=== PATIENT | female | born 1940 | race Caucasian/White ===

== ENCOUNTER 2024-04-29 06:27 | Inpatient (IN) ==
[2024-04-21 11:28] LABS: Basophils # (Auto) 0.03 K/mcL (0.00-0.30); Basophils % (Auto) 0.4 % (0.0-2.0); Eosinophils # (Auto) 0.12 K/mcL (0.00-0.70); Eosinophils % (Auto) 1.8 % (0.0-7.0); Hematocrit 43.9 % (34.1-44.9); Hemoglobin 14.7 g/dL (11.2-15.7); Lymphocytes # (Auto) 2.57 K/mcL (1.50-4.80); Lymphocytes % (Auto) 38.2 % (15.5-49.0); Mean Cell Volume 90.1 fL (80.0-100.0); Mean Corpuscular HGB Conc 33.5 g/dL (31.0-36.0); Mean Platelet Volume 9.5 fL (8.8-12.5); Monocytes # (Auto) 0.58 K/mcL (0.10-0.90); Monocytes % (Auto) 8.6 % (1.0-12.0); Neutrophils % (Auto) 50.9 % (38.0-78.0); Platelet Count 254 K/mcL (140-440); RBC 4.87 M/mcL (3.59-5.38); Red Cell Distribution Width 12.7 % (11.5-14.5); WBC 6.7 K/mcL (4.5-11.0)
[2024-04-21 11:30] LABS: Blood Urea Nitrogen 12 mg/dL (8-23); Calcium 10.2 mg/dL (8.6-10.4); Carbon Dioxide 27 mmol/L (22-30); Chloride 99 mmol/L (96-108); Glomerular Filtration Rate 69; Glucose 103 mg/dL (70-105); Potassium 4.2 mmol/L (3.3-5.1); Sodium 137 mmol/L (133-145)
[2024-04-21 13:43] LABS: Hemoglobin A1C 6.3 % Hgb (4.0-6.0)
[2024-04-29] MEDS: CELECOXIB 200 MG CAPSULE PO SCH (06:58)
[2024-04-29] MEDS: ACETAMINOPHEN 500 MG TABLET PO SCH (06:58)
[2024-04-29] MEDS: GABAPENTIN 100 MG CAPSULE PO SCH (06:58)
[2024-04-29] MEDS ORDERED: fentaNYL 100 MCG/2 ML VIAL ONE ×2 (07:07→09:27)
[2024-04-29] MEDS ORDERED: PROPOFOL 200 MG/20 ML VIAL IV ONE (07:07)
[2024-04-29] MEDS ORDERED: KETAMINE 50 MG/ML ML ONE (07:08)
[2024-04-29] MEDS ORDERED: DEXAMETHASONE 10 MG/ML VIAL ONE (07:09)
[2024-04-29] MEDS ORDERED: GLYCOPYRROLATE 0.2 MG/ML VIAL IV ONE (07:09)
[2024-04-29] MEDS ORDERED: ROCURONIUM 10 MG/ML ML IV ONE ×2 (07:09→09:27)
[2024-04-29] MEDS ORDERED: LIDOCAINE 2% PF 5 ML VIAL ONE (07:09)
[2024-04-29] MEDS ORDERED: ONDANSETRON 4 MG/2 ML VIAL ONE (07:09)
[2024-04-29] MEDS ORDERED: SUCCINYLCHOLINE 200 MG/10 ML VIAL IV ONE (07:10)
[2024-04-29] MEDS ORDERED: FAMOTIDINE/PF 20 MG/2 ML VIAL IV ONE (07:11)
[2024-04-29] MEDS: ceFAZolin 2 GM in DEXTROSE 5% IN WATER 50 ML IV SCH (07:29)
[2024-04-29] MEDS ORDERED: PHENYLephrine 1 MG/10 ML SYRINGE (ANEST) ONE (07:54)
[2024-04-29] MEDS ORDERED: VASOPRESSIN 20 UNIT/ML VIAL ONE (07:57)
[2024-04-29] MEDS ORDERED: 0.9 % SODIUM CHLORIDE 100 ML IV ONE (07:57)
[2024-04-29] MEDS ORDERED: MAGNESIUM SULFATE 2 GM/50 ML BAG IV ONE (07:57)
[2024-04-29] MEDS: BUPIVACAINE W/EPI 0.25% 50 ML VIAL IJ ONE (09:45)
[2024-04-29] MEDS: PIPERACILLIN SODIUM/TAZOBACTAM 3.375 GM in DEXTROSE 5% IN WATER 50 ML IV ONE (10:00)
[2024-04-29] MEDS ORDERED: SUGAMMADEX SODIUM 200 MG/2 ML VIAL IV ONE (11:45)
[2024-04-29] MEDS ORDERED: HYDROmorphone 0.5 MG/0.5 ML SYRINGE IV PRN ×2 (11:52→15:49)
[2024-04-29] MEDS ORDERED: LACTATED RINGERS 250 ML IV PRN (11:52)
[2024-04-29] MEDS ORDERED: BENZOCAINE/MENTHOL 1 LOZENGE PO PRN (11:52)
[2024-04-29] MEDS ORDERED: ONDANSETRON 4 MG/2 ML VIAL IV PRN (11:52)
[2024-04-29] MEDS ORDERED: fentaNYL 100 MCG/2 ML VIAL IV PRN (11:52)
[2024-04-29] MEDS ORDERED: IPRATROPIUM/ALBUTEROL 3 ML AMPUL.NEB NEB PRN (11:52)
[2024-04-29] MEDS ORDERED: NALOXONE HCL 0.4 MG/ML VIAL IV PRN (11:52)
[2024-04-29] MEDS: ACETAMINOPHEN 1,000 MG/100 ML BAG IV ONE (12:20)
[2024-04-29] MEDS: METHOCARBAMOL 1,000 MG/10 ML VIAL IV PRN (12:41)
[2024-04-29] MEDS: PIPERACILLIN SODIUM/TAZOBACTAM 3.375 GM in DEXTROSE 5% IN WATER 100 ML IV SCH (15:30)
[2024-04-29] MEDS: LACTATED RINGERS 1,000 ML IV SCH (15:56)
[2024-04-29] MEDS: PANTOPRAZOLE 40 MG VIAL IV SCH (17:37)
[2024-04-29] MEDS: 0.9 % SODIUM CHLORIDE 1,000 ML IV SCH (17:39)
[2024-04-29] MEDS: ACETAMINOPHEN 1,000 MG/100 ML BAG IV SCH (17:45)
[2024-04-29] MEDS ORDERED: METOCLOPRAMIDE 10 MG/2 ML VIAL IV SCH (18:00)
[2024-04-29] MEDS: METOCLOPRAMIDE 10 MG/2 ML VIAL IV SCH (18:17)
[2024-04-30 06:20] LABS: Basophils # (Auto) 0.01 K/mcL (0.00-0.30); Basophils % (Auto) 0.1 % (0.0-2.0); Eosinophils # (Auto) 0 K/mcL (0.00-0.70); Eosinophils % (Auto) 0 % (0.0-7.0); Hematocrit 37.6 % (34.1-44.9); Hemoglobin 12.6 g/dL (11.2-15.7); Lymphocytes # (Auto) 1.56 K/mcL (1.50-4.80); Lymphocytes % (Auto) 11.7 % (15.5-49.0); Mean Corpuscular HGB Conc 33.5 g/dL (31.0-36.0); Mean Platelet Volume 9.7 fL (8.8-12.5); Monocytes # (Auto) 1.33 K/mcL (0.10-0.90); Platelet Count 203 K/mcL (140-440); RBC 4.18 M/mcL (3.59-5.38); Red Cell Distribution Width 12.7 % (11.5-14.5); WBC 13.3 K/mcL (4.5-11.0)
[2024-04-30 06:28] LABS: ALT/SGPT 15 U/L (<40); AST/SGOT 19 U/L (<32); Albumin 3.3 gm/dL (3.2-5.2); Albumin/Globulin Ratio 1.6 (1.0-2.3); Alkaline Phosphatase 48 U/L (39-117); Bilirubin,Direct < 0.2 mg/dL (0-0.3); Bilirubin,Total 0.4 mg/dL (0.1-1.0); Blood Urea Nitrogen 12 mg/dL (8-23); Calcium 8.3 mg/dL (8.6-10.4); Carbon Dioxide 21 mmol/L (22-30); Chloride 103 mmol/L (96-108); Globulin 2.1 gm/dL (2.2-3.7); Glomerular Filtration Rate 69; Glucose 127 mg/dL (70-105); Lactate Dehydrogenase 183 U/L (135-225); Phosphorous 3.1 mg/dL (2.5-4.5); Potassium 4.2 mmol/L (3.3-5.1); Sodium 134 mmol/L (133-145); Triglycerides 116 mg/dL (<150); Uric Acid 3.1 mg/dL (2.5-8.0)
[2024-04-30] MEDS: LEVOTHYROXINE 50 MCG TABLET PO SCH (07:52)
[2024-04-30] MEDS: POLYETHYLENE GLYCOL 3350 17 GM PACKET PO SCH (09:43)
[2024-05-01 06:13] LABS: Basophils # (Auto) 0.03 K/mcL (0.00-0.30); Basophils % (Auto) 0.3 % (0.0-2.0); Eosinophils # (Auto) 0.04 K/mcL (0.00-0.70); Eosinophils % (Auto) 0.4 % (0.0-7.0); Hematocrit 38.1 % (34.1-44.9); Hemoglobin 12.7 g/dL (11.2-15.7); Lymphocytes # (Auto) 1.81 K/mcL (1.50-4.80); Lymphocytes % (Auto) 18.4 % (15.5-49.0); Mean Cell Volume 90.7 fL (80.0-100.0); Mean Corpuscular HGB Conc 33.3 g/dL (31.0-36.0); Mean Platelet Volume 9.8 fL (8.8-12.5); Monocytes # (Auto) 0.82 K/mcL (0.10-0.90); Monocytes % (Auto) 8.3 % (1.0-12.0); Neutrophils % (Auto) 72.5 % (38.0-78.0); Platelet Count 205 K/mcL (140-440); Red Cell Distribution Width 12.9 % (11.5-14.5); WBC 9.9 K/mcL (4.5-11.0)
[2024-05-01 06:39] LABS: ALT/SGPT 13 U/L (<40); AST/SGOT 22 U/L (<32); Albumin 3.3 gm/dL (3.2-5.2); Albumin/Globulin Ratio 1.3 (1.0-2.3); Alkaline Phosphatase 55 U/L (39-117); Bilirubin,Direct 0.2 mg/dL (<0.3); Bilirubin,Total 0.5 mg/dL (0.1-1.0); Blood Urea Nitrogen 11 mg/dL (8-23); Calcium 8.6 mg/dL (8.6-10.4); Carbon Dioxide 22 mmol/L (22-30); Chloride 108 mmol/L (96-108); Globulin 2.5 gm/dL (2.2-3.7); Glomerular Filtration Rate 69; Glucose 120 mg/dL (70-105); Lactate Dehydrogenase 191 U/L (135-225); Phosphorous 1.9 mg/dL (2.5-4.5); Potassium 3.6 mmol/L (3.3-5.1); Sodium 140 mmol/L (133-145); Triglycerides 145 mg/dL (<150); Uric Acid 2.4 mg/dL (2.5-8.0)
[2024-05-01] MEDS: 0.9 % SODIUM CHLORIDE 10 ML SYRINGE IV SCH (13:58)
[2024-05-01] MEDS: LOSARTAN 25 MG TABLET PO SCH (20:02)
[2024-05-02 06:12] LABS: Basophils # (Auto) 0.03 K/mcL (0.00-0.30); Basophils % (Auto) 0.3 % (0.0-2.0); Eosinophils # (Auto) 0.12 K/mcL (0.00-0.70); Eosinophils % (Auto) 1.3 % (0.0-7.0); Hematocrit 37.6 % (34.1-44.9); Hemoglobin 12.2 g/dL (11.2-15.7); Lymphocytes # (Auto) 2.07 K/mcL (1.50-4.80); Lymphocytes % (Auto) 22.8 % (15.5-49.0); Mean Cell Volume 91.5 fL (80.0-100.0); Mean Corpuscular HGB Conc 32.4 g/dL (31.0-36.0); Mean Platelet Volume 9.8 fL (8.8-12.5); Monocytes # (Auto) 0.79 K/mcL (0.10-0.90); Monocytes % (Auto) 8.7 % (1.0-12.0); Neutrophils % (Auto) 66.7 % (38.0-78.0); Platelet Count 222 K/mcL (140-440); RBC 4.11 M/mcL (3.59-5.38); WBC 9.1 K/mcL (4.5-11.0)
[2024-05-02 06:27] LABS: ALT/SGPT 14 U/L (<40); AST/SGOT 22 U/L (<32); Albumin 3.2 gm/dL (3.2-5.2); Albumin/Globulin Ratio 1.2 (1.0-2.3); Alkaline Phosphatase 56 U/L (39-117); Bilirubin,Direct 0.2 mg/dL (<0.3); Bilirubin,Total 0.5 mg/dL (0.1-1.0); Blood Urea Nitrogen 10 mg/dL (8-23); Calcium 8.8 mg/dL (8.6-10.4); Carbon Dioxide 23 mmol/L (22-30); Chloride 104 mmol/L (96-108); Globulin 2.7 gm/dL (2.2-3.7); Glomerular Filtration Rate 81; Glucose 116 mg/dL (70-105); Lactate Dehydrogenase 196 U/L (135-225); Phosphorous 1.9 mg/dL (2.5-4.5); Potassium 3.4 mmol/L (3.3-5.1); Sodium 137 mmol/L (133-145); Triglycerides 149 mg/dL (<150); Uric Acid 2.3 mg/dL (2.5-8.0)
[2024-05-02] MEDS ORDERED: MAGNESIUM HYDROXIDE 30 ML ORAL.SUSP PO PRN (15:20)
[2024-05-02] MEDS: POLYETHYLENE GLYCOL 3350 17 GM PACKET PO SCH (15:58)
[2024-05-02] MEDS: POTASSIUM PHOSPHATE 40 MEQ in 0.9 % SODIUM CHLORIDE 500 ML IV SCH (16:09)
[2024-05-03] MEDS ORDERED: POLYETHYLENE GLYCOL 3350 17 GM PACKET PO SCH (09:00)
[2024-05-03] MEDS: BENZOCAINE/MENTHOL 1 LOZENGE PO PRN (14:13)
[2024-05-03] MEDS: PANTOPRAZOLE 40 MG TABLET PO SCH (16:45)
[2024-05-03] MEDS: METOCLOPRAMIDE 10 MG TABLET PO SCH (16:45)
[2024-05-04 10:18] VITALS: TEMP 97.5; O2SAT 96
[2024-05-04] MEDS: PIPERACILLIN SODIUM/TAZOBACTAM 3.375 GM in 0.9 % SODIUM CHLORIDE 100 ML IV SCH (14:05)
== END 2024-05-04 16:26 | disposition home or self-care (01) | DRG 742 ==
LOC: SUR 06:27 → ICU 14:19 → MEDSUR 05-03 15:40
PROVIDERS: ADMIT Family Medicine Adult Medicine; ATTEND Family Medicine Adult Medicine

== ENCOUNTER 2024-08-12 05:50 | Inpatient (IN) ==
[2024-08-05 11:24] LABS: INR 0.9 (0.9-1.1); Prothrombin Time 12.5 sec (11.9-14.5)
[2024-08-12] MEDS: metroNIDAZOLE 500 MG/100 ML BAG IV SCH (08:15)
[2024-08-12] MEDS ORDERED: SUGAMMADEX SODIUM 200 MG/2 ML VIAL IV ONE (08:16)
[2024-08-12] MEDS ORDERED: KETAMINE 50 MG/ML Syringe IV ONE (08:16)
[2024-08-12] MEDS ORDERED: fentaNYL 100 MCG/2 ML VIAL ONE (08:16)
[2024-08-12] MEDS ORDERED: ONDANSETRON 4 MG/2 ML VIAL ONE (08:18)
[2024-08-12] MEDS ORDERED: DEXAMETHASONE 10 MG/ML VIAL ONE (08:18)
[2024-08-12] MEDS ORDERED: PROPOFOL 200 MG/20 ML VIAL IV ONE ×2 (08:18→11:25)
[2024-08-12] MEDS ORDERED: ROCURONIUM 10 MG/ML ML IV ONE ×2 (08:18→10:44)
[2024-08-12] MEDS ORDERED: GLYCOPYRROLATE 0.2 MG/ML VIAL IV ONE (08:18)
[2024-08-12] MEDS ORDERED: LIDOCAINE 2% PF 5 ML VIAL ONE (08:18)
[2024-08-12] MEDS: CEFEPIME 2 GM VIAL IV SCH (08:59)
[2024-08-12] MEDS ORDERED: PHENYLephrine 1 MG/10 ML SYRINGE (ANEST) ONE (09:39)
[2024-08-12] MEDS ORDERED: CARBOXYMETHYLCELLULOSE SODIUM 1 EACH DROPER.GEL ONE (09:41)
[2024-08-12] MEDS ORDERED: PHENYLEPHRINE 10 MG/ML VIAL ONE (10:19)
[2024-08-12] MEDS ORDERED: MAGNESIUM SULFATE 2 GM/50 ML BAG IV ONE (10:19)
[2024-08-12] MEDS ORDERED: ePHEDrine 50 MG/5 ML SYRINGE (ANEST) IV ONE (10:30)
[2024-08-12] MEDS ORDERED: ONDANSETRON 4 MG/2 ML VIAL IV PRN ×2 (11:33→12:20)
[2024-08-12] MEDS ORDERED: METHOCARBAMOL 1,000 MG/10 ML VIAL IV PRN ×2 (11:33→12:20)
[2024-08-12] MEDS ORDERED: HYDROmorphone 0.5 MG/0.5 ML SYRINGE IV PRN ×2 (11:33→12:20)
[2024-08-12] MEDS ORDERED: IPRATROPIUM/ALBUTEROL 3 ML AMPUL.NEB NEB PRN ×2 (11:33→12:20)
[2024-08-12] MEDS ORDERED: BENZOCAINE/MENTHOL 1 LOZENGE PO PRN ×2 (11:33→12:20)
[2024-08-12] MEDS ORDERED: fentaNYL 100 MCG/2 ML VIAL IV PRN ×2 (11:33→12:20)
[2024-08-12] MEDS ORDERED: HYDROmorphone 0.5 MG/0.5 ML SYRINGE ONE (12:19)
[2024-08-12] MEDS: ACETAMINOPHEN 1,000 MG/100 ML BAG IV ONE (13:20)
[2024-08-12] MEDS: 0.9 % SODIUM CHLORIDE 10 ML SYRINGE IV SCH (14:45)
[2024-08-12] MEDS: 0.9 % SODIUM CHLORIDE 1,000 ML IV SCH (14:45)
[2024-08-12] MEDS: HYDROmorphone 0.5 MG/0.5 ML SYRINGE IV PRN (16:40)
[2024-08-12] MEDS: ONDANSETRON 4 MG/2 ML VIAL IV PRN (16:41)
[2024-08-12] MEDS: LACTATED RINGERS 1,000 ML IV SCH (20:56)
[2024-08-12] MEDS: BENZOCAINE/MENTHOL 1 LOZENGE PO PRN (21:07)
[2024-08-12] MEDS: LOSARTAN 25 MG TABLET PO SCH (21:08)
[2024-08-13 06:52] LABS: Basophils # (Auto) 0 K/mcL (0.00-0.30); Basophils % (Auto) 0 % (0.0-2.0); Eosinophils # (Auto) 0 K/mcL (0.00-0.70); Eosinophils % (Auto) 0 % (0.0-7.0); Hematocrit 42.1 % (34.1-44.9); Hemoglobin 13.8 g/dL (11.2-15.7); Lymphocytes # (Auto) 1.26 K/mcL (1.50-4.80); Lymphocytes % (Auto) 9.9 % (15.5-49.0); Mean Cell Volume 90.7 fL (80.0-100.0); Mean Corpuscular HGB Conc 32.8 g/dL (31.0-36.0); Mean Platelet Volume 9.7 fL (8.8-12.5); Monocytes # (Auto) 1.11 K/mcL (0.10-0.90); Monocytes % (Auto) 8.7 % (1.0-12.0); Neutrophils % (Auto) 81.2 % (38.0-78.0); Platelet Count 268 K/mcL (140-440); RBC 4.64 M/mcL (3.59-5.38); Red Cell Distribution Width 12.7 % (11.5-14.5); WBC 12.7 K/mcL (4.5-11.0)
[2024-08-13 07:23] LABS: ALT/SGPT 16 U/L (<40); AST/SGOT 19 U/L (<32); Albumin 3.5 gm/dL (3.2-5.2); Albumin/Globulin Ratio 1.5 (1.0-2.3); Alkaline Phosphatase 58 U/L (39-117); Bilirubin,Direct < 0.2 mg/dL (0-0.3); Bilirubin,Total 0.5 mg/dL (0.1-1.0); Blood Urea Nitrogen 16 mg/dL (8-23); Calcium 8.8 mg/dL (8.6-10.4); Carbon Dioxide 23 mmol/L (22-30); Chloride 105 mmol/L (96-108); Globulin 2.4 gm/dL (2.2-3.7); Glomerular Filtration Rate 60; Glucose 152 mg/dL (70-105); Lactate Dehydrogenase 225 U/L (135-225); Phosphorous 2.9 mg/dL (2.5-4.5); Potassium 4.2 mmol/L (3.3-5.1); Sodium 137 mmol/L (133-145); Triglycerides 58 mg/dL (<150); Uric Acid 5.6 mg/dL (2.5-8.0)
[2024-08-13] MEDS: LEVOTHYROXINE 50 MCG TABLET PO SCH (08:09)
[2024-08-13 09:47] LABS: Appearance,Urine Clear (Clear); Bilirubin,Urine Negative (Negative); Color,Urine Yellow; Glucose,Urine (UA) Negative (Negative); Ketones,Urine Negative (Negative); Leukocyte Esterase,Urine Negative /uL (Negative); Nitrate,Urine Negative (Negative); PH,Urine 5.5 (5.0-9.0); Protein,Urine 30 mg/dL (Negative); Uric Acid Crystals,Urine Rare /hpf; Urine Blood Large ery/mcL (Negative); Urine Granular Cast 4 /lph (0-0); Urine RBC 13 /hpf (0-3); Urine Squamous Epithelial Cell 0 /hpf (0-4); Urine WBC 0 /hpf (0-4); Urobilinogen,Urine Normal
[2024-08-13] MEDS: ACETAMINOPHEN 1,000 MG/100 ML BAG IV PRN (10:33)
[2024-08-14 06:51] LABS: Basophils # (Auto) 0.03 K/mcL (0.00-0.30); Basophils % (Auto) 0.3 % (0.0-2.0); Eosinophils # (Auto) 0.01 K/mcL (0.00-0.70); Eosinophils % (Auto) 0.1 % (0.0-7.0); Hemoglobin 12.8 g/dL (11.2-15.7); Lymphocytes % (Auto) 11.1 % (15.5-49.0); Mean Cell Volume 91.5 fL (80.0-100.0); Mean Corpuscular HGB Conc 32.8 g/dL (31.0-36.0); Mean Platelet Volume 10.1 fL (8.8-12.5); Monocytes # (Auto) 0.77 K/mcL (0.10-0.90); Monocytes % (Auto) 7.1 % (1.0-12.0); Neutrophils % (Auto) 81.1 % (38.0-78.0); Platelet Count 240 K/mcL (140-440); RBC 4.26 M/mcL (3.59-5.38); WBC 10.8 K/mcL (4.5-11.0)
[2024-08-14 07:31] LABS: ALT/SGPT 16 U/L (<40); AST/SGOT 18 U/L (<32); Albumin 3.1 gm/dL (3.2-5.2); Albumin/Globulin Ratio 1.1 (1.0-2.3); Alkaline Phosphatase 73 U/L (39-117); Bilirubin,Direct 0.2 mg/dL (<0.3); Bilirubin,Total 0.5 mg/dL (0.1-1.0); Blood Urea Nitrogen 12 mg/dL (8-23); Calcium 8.5 mg/dL (8.6-10.4); Carbon Dioxide 22 mmol/L (22-30); Chloride 106 mmol/L (96-108); Globulin 2.7 gm/dL (2.2-3.7); Glomerular Filtration Rate 81; Glucose 104 mg/dL (70-105); Lactate Dehydrogenase 286 U/L (135-225); Phosphorous 2.1 mg/dL (2.5-4.5); Potassium 3.8 mmol/L (3.3-5.1); Sodium 138 mmol/L (133-145); Triglycerides 93 mg/dL (<150); Uric Acid 4.9 mg/dL (2.5-8.0)
[2024-08-17 07:00] LABS: Basophils # (Auto) 0.03 K/mcL (0.00-0.30); Basophils % (Auto) 0.4 % (0.0-2.0); Eosinophils # (Auto) 0.08 K/mcL (0.00-0.70); Eosinophils % (Auto) 1.1 % (0.0-7.0); Hematocrit 35.5 % (34.1-44.9); Hemoglobin 11.8 g/dL (11.2-15.7); Lymphocytes # (Auto) 1.61 K/mcL (1.50-4.80); Lymphocytes % (Auto) 21.8 % (15.5-49.0); Mean Corpuscular HGB Conc 33.2 g/dL (31.0-36.0); Mean Platelet Volume 9.5 fL (8.8-12.5); Monocytes # (Auto) 0.71 K/mcL (0.10-0.90); Monocytes % (Auto) 9.6 % (1.0-12.0); Neutrophils % (Auto) 66.4 % (38.0-78.0); Platelet Count 296 K/mcL (140-440); Red Cell Distribution Width 12.8 % (11.5-14.5); WBC 7.4 K/mcL (4.5-11.0)
[2024-08-17 07:14] LABS: ALT/SGPT 8 U/L (<40); AST/SGOT 17 U/L (<32); Albumin/Globulin Ratio 1.2 (1.0-2.3); Alkaline Phosphatase 51 U/L (39-117); Bilirubin,Direct < 0.2 mg/dL (0-0.3); Bilirubin,Total 0.3 mg/dL (0.1-1.0); Blood Urea Nitrogen 17 mg/dL (8-23); Calcium 8.8 mg/dL (8.6-10.4); Carbon Dioxide 24 mmol/L (22-30); Chloride 106 mmol/L (96-108); Globulin 2.6 gm/dL (2.2-3.7); Glomerular Filtration Rate 90; Glucose 113 mg/dL (70-105); Lactate Dehydrogenase 233 U/L (135-225); Phosphorous 1.7 mg/dL (2.5-4.5); Potassium 3.1 mmol/L (3.3-5.1); Sodium 142 mmol/L (133-145); Triglycerides 162 mg/dL (<150); Uric Acid 6.5 mg/dL (2.5-8.0)
[2024-08-17] MEDS: POTASSIUM PHOSPHATE 40 MEQ in DEXTROSE 5% IN WATER 500 ML IV ONE (10:47)
[2024-08-17] MEDS: POTASSIUM PHOSPHATE 40 MEQ in DEXTROSE 5% IN WATER 500 ML IV SCH ×2 (11:58→16:08)
[2024-08-18] MEDS: METOCLOPRAMIDE 10 MG/2 ML VIAL IV SCH (17:43)
[2024-08-19 06:55] LABS: Basophils # (Auto) 0.02 K/mcL (0.00-0.30); Basophils % (Auto) 0.3 % (0.0-2.0); Eosinophils # (Auto) 0.14 K/mcL (0.00-0.70); Eosinophils % (Auto) 2.2 % (0.0-7.0); Hematocrit 33.2 % (34.1-44.9); Lymphocytes # (Auto) 1.51 K/mcL (1.50-4.80); Lymphocytes % (Auto) 23.6 % (15.5-49.0); Mean Cell Volume 91.2 fL (80.0-100.0); Mean Corpuscular HGB Conc 33.1 g/dL (31.0-36.0); Mean Platelet Volume 9.6 fL (8.8-12.5); Monocytes # (Auto) 0.57 K/mcL (0.10-0.90); Monocytes % (Auto) 8.9 % (1.0-12.0); Neutrophils % (Auto) 64.4 % (38.0-78.0); Platelet Count 275 K/mcL (140-440); RBC 3.64 M/mcL (3.59-5.38); Red Cell Distribution Width 12.6 % (11.5-14.5); WBC 6.4 K/mcL (4.5-11.0)
[2024-08-19 08:01] LABS: ALT/SGPT 11 U/L (<40); AST/SGOT 16 U/L (<32); Albumin/Globulin Ratio 1.4 (1.0-2.3); Alkaline Phosphatase 46 U/L (39-117); Bilirubin,Direct < 0.2 mg/dL (0-0.3); Bilirubin,Total 0.3 mg/dL (0.1-1.0); Blood Urea Nitrogen 8 mg/dL (8-23); Calcium 8.7 mg/dL (8.6-10.4); Carbon Dioxide 27 mmol/L (22-30); Chloride 104 mmol/L (96-108); Globulin 2.2 gm/dL (2.2-3.7); Glomerular Filtration Rate 85; Glucose 137 mg/dL (70-105); Lactate Dehydrogenase 245 U/L (135-225); Phosphorous 3.1 mg/dL (2.5-4.5); Potassium 2.9 mmol/L (3.3-5.1); Sodium 140 mmol/L (133-145); Triglycerides 124 mg/dL (<150); Uric Acid 3.1 mg/dL (2.5-8.0)
[2024-08-19] MEDS: POTASSIUM CHLORIDE 10 MEQ/100 ML BAG IV SCH ×2 (09:46→13:48)
[2024-08-19] MEDS ORDERED: POTASSIUM CHLORIDE 40 MEQ in DEXTROSE 5% IN WATER 500 ML IV ONE (13:07)
[2024-08-19] MEDS: POTASSIUM CHLORIDE 40 MEQ in DEXTROSE 5% IN WATER 500 ML IV ONE (18:05)
[2024-08-20 06:54] LABS: Basophils # (Auto) 0.02 K/mcL (0.00-0.30); Basophils % (Auto) 0.3 % (0.0-2.0); Eosinophils # (Auto) 0.18 K/mcL (0.00-0.70); Eosinophils % (Auto) 2.8 % (0.0-7.0); Hematocrit 34.2 % (34.1-44.9); Hemoglobin 11.3 g/dL (11.2-15.7); Lymphocytes # (Auto) 1.51 K/mcL (1.50-4.80); Lymphocytes % (Auto) 23.9 % (15.5-49.0); Mean Cell Volume 91.4 fL (80.0-100.0); Mean Platelet Volume 9.4 fL (8.8-12.5); Monocytes # (Auto) 0.56 K/mcL (0.10-0.90); Monocytes % (Auto) 8.9 % (1.0-12.0); Neutrophils % (Auto) 63.6 % (38.0-78.0); Platelet Count 322 K/mcL (140-440); RBC 3.74 M/mcL (3.59-5.38); Red Cell Distribution Width 12.6 % (11.5-14.5); WBC 6.3 K/mcL (4.5-11.0)
[2024-08-20] MEDS: SIMETHICONE 80 MG TAB.CHEW CHEWED SCH (13:45)
[2024-08-20] MEDS: POLYETHYLENE GLYCOL 3350 17 GM PACKET PO SCH (13:45)
[2024-08-20] MEDS: DILTIAZEM 30 MG TABLET PO ONE (22:13)
[2024-08-20] MEDS: DILTIAZEM 30 MG TABLET PO SCH (22:35)
[2024-08-21 06:09] LABS: Basophils # (Auto) 0.02 K/mcL (0.00-0.30); Basophils % (Auto) 0.2 % (0.0-2.0); Eosinophils # (Auto) 0.18 K/mcL (0.00-0.70); Eosinophils % (Auto) 1.8 % (0.0-7.0); Hematocrit 37.3 % (34.1-44.9); Hemoglobin 12.9 g/dL (11.2-15.7); Lymphocytes # (Auto) 1.61 K/mcL (1.50-4.80); Lymphocytes % (Auto) 16.3 % (15.5-49.0); Mean Cell Volume 90.1 fL (80.0-100.0); Mean Corpuscular HGB Conc 34.6 g/dL (31.0-36.0); Mean Platelet Volume 9.3 fL (8.8-12.5); Monocytes % (Auto) 7.1 % (1.0-12.0); Neutrophils % (Auto) 74.3 % (38.0-78.0); Platelet Count 437 K/mcL (140-440); RBC 4.14 M/mcL (3.59-5.38); Red Cell Distribution Width 12.4 % (11.5-14.5); WBC 9.9 K/mcL (4.5-11.0)
[2024-08-21 06:32] LABS: ALT/SGPT 12 U/L (<40); AST/SGOT 20 U/L (<32); Albumin 3.4 gm/dL (3.2-5.2); Albumin/Globulin Ratio 1.2 (1.0-2.3); Alkaline Phosphatase 59 U/L (39-117); Bilirubin,Direct < 0.2 mg/dL (0-0.3); Bilirubin,Total 0.3 mg/dL (0.1-1.0); Blood Urea Nitrogen 8 mg/dL (8-23); Calcium 9.9 mg/dL (8.6-10.4); Carbon Dioxide 29 mmol/L (22-30); Chloride 95 mmol/L (96-108); Globulin 2.9 gm/dL (2.2-3.7); Glomerular Filtration Rate 85; Glucose 140 mg/dL (70-105); Lactate Dehydrogenase 219 U/L (135-225); Potassium 3.6 mmol/L (3.3-5.1); Sodium 135 mmol/L (133-145); Triglycerides 156 mg/dL (<150)
[2024-08-21] MEDS: DILTIAZEM 30 MG TABLET PO SCH (08:23)
[2024-08-21] MEDS: LOSARTAN 25 MG TABLET PO SCH (08:23)
[2024-08-21] MEDS ORDERED: LOSARTAN 25 MG TABLET PO SCH (09:00)
[2024-08-21] MEDS: hydrALAZINE 20 MG/ML VIAL IV PRN (09:55)
[2024-08-21] MEDS: BISACODYL 10 MG SUPP.RECT PR SCH (15:01)
[2024-08-22 15:55] VITALS: TEMP 97.9; O2SAT 93
== END 2024-08-22 15:42 | disposition home or self-care (01) | DRG 345 ==
LOC: MEDSUR 05:50
PROVIDERS: ADMIT Family Medicine Adult Medicine; ATTEND Family Medicine Adult Medicine